=== PATIENT | female | born 1985 | race Caucasian/White ===

== ENCOUNTER → 2017-06-26 | Outpatient (CLI) | payer BC | LOC: SUN.DIA 09:01 | DX: O24.419 Gestational diabetes mellitus in pregnancy, unspecified control (principal); Z3A.00 Weeks of gestation of pregnancy not specified; Z71.3 Dietary counseling and surveillance | CPT/HCPCS: G0108 ==

== ENCOUNTER → 2017-07-09 | Outpatient (CLI) | payer BC | LOC: SUN.DIA 08:53 | DX: O24.419 Gestational diabetes mellitus in pregnancy, unspecified control (principal); Z3A.32 32 weeks gestation of pregnancy; Z71.3 Dietary counseling and surveillance | CPT/HCPCS: G0108 ==

== ENCOUNTER → 2017-07-30 | Outpatient (CLI) | payer BC | LOC: SUN.DIA 08:05 | DX: O24.419 Gestational diabetes mellitus in pregnancy, unspecified control (principal); Z3A.35 35 weeks gestation of pregnancy; Z71.3 Dietary counseling and surveillance | CPT/HCPCS: G0108 ==

== ENCOUNTER → 2017-08-12 | Outpatient (CLI) | payer BC | LOC: SUN.DIA 11:09 | DX: O24.419 Gestational diabetes mellitus in pregnancy, unspecified control (principal); Z3A.37 37 weeks gestation of pregnancy; Z71.3 Dietary counseling and surveillance | CPT/HCPCS: G0108 ==

== ENCOUNTER 2017-09-01 08:10 | Outpatient (CLI) | payer BC ==
[~2017-09-01] VITALS: Ht 154.9 cm; Wt 65.5 kg
[2017-09-01 08:14] VITALS: BP 124/79; PULSE 100; TEMP 98.1
[2017-09-01 08:30] VITALS: BP 124/79; PULSE 100; TEMP 98.1
== END 2017-09-01 09:55 | disposition home or self-care (01) ==
LOC: LDRO 08:10
DX: O46.8X3 Other antepartum hemorrhage, third trimester (principal); Z3A.39 39 weeks gestation of pregnancy

== ENCOUNTER 2017-09-02 23:58 | Inpatient (IN) | payer BC ==
[~2017-09-02] VITALS: Ht 152.4 cm; Wt 65.5 kg
[2017-09-03] VITALS (63 sets, daily range): BP systolic 85–138; BP diastolic 50–83; PULSE 62–117; TEMP 98–99.1
[2017-09-03] MEDS ORDERED: PRENATAL1 TA7 PO (00:28)
[2017-09-03] MEDS ORDERED: CALCIUM CARBON650 M2 PO (00:29)
[2017-09-03] MEDS ORDERED: NATURAL IRON65 MG PO (00:29)
[2017-09-03 01:51] LABS: HEMOGLOBIN 14.5 g/dl (12.5-16.0); MEAN CELL VOLUME 84 fl (80.0-100.0); MEAN CORPUSCULAR HEMOGLOBIN 27 pg (27.0-31.0); MEAN CORPUSCULAR HGB CONC 32 g/dl (33.0-37.0); MEAN PLATELET VOLUME 10.5 fl (7.4-10.4); PLATELET COUNT 198 K/mm3 (130-400); RED BLOOD COUNT 5.39 M/mm3 (4.10-5.30); REDCELL DISTRIBUTION WIDTH-CV 15.1 % (11.5-14.5)
[2017-09-03 02:13] LABS: BAND 3 % (0-10); EOSINOPHIL 1 % (0-4); NEUTROPHILS 63 % (42.0-75.2); ROULEAUX 1+; TOXIC GRANULATION PRESENT
[2017-09-03 02:14] LABS: ANISOCYTOSIS 1+; LYMPHOCYTE 29 % (20.0-51.0); POIKILOCYTOSIS 1+
[2017-09-04 05:30] VITALS: BP 92/54; PULSE 72; TEMP 97.4
[2017-09-04 06:45] VITALS: BP 96/62; PULSE 77; TEMP 98.3
[2017-09-04 07:13] LABS: BASO # 0.1 (0.0-0.2); BASO % 0.5 % (0.0-2.0); EOS # 0.1 (0.0-0.7); EOS % 1.1 % (0-4.0); GRAN # 9.7 (1.4-6.5); GRAN % 73.3 % (42.2-75.2); LYMPH # 2.1 (1.2-3.4); LYMPH % 15.5 % (20.0-51.0); MEAN CELL VOLUME 84 fl (80.0-100.0); MEAN CORPUSCULAR HGB CONC 32 g/dl (33.0-37.0); MEAN PLATELET VOLUME 10.1 fl (7.4-10.4); MONO # 1.1 (0.1-0.6); MONO % 8.4 % (1.7-9.3); PLATELET COUNT 136 K/mm3 (130-400); REDCELL DISTRIBUTION WIDTH-CV 14.9 % (11.5-14.5)
[2017-09-04 07:30] LABS: HEMATOCRIT 29.3 % (37.0-47.0); HEMOGLOBIN 9.3 g/dl (12.5-16.0); MEAN CORPUSCULAR HEMOGLOBIN 27 pg (27.0-31.0)
[2017-09-04 10:30] VITALS: BP 106/58; PULSE 83; TEMP 97.5
[2017-09-04 15:50] VITALS: BP 112/59; PULSE 86; TEMP 98.2
[2017-09-04 20:00] VITALS: BP 120/78; PULSE 100; TEMP 98
[2017-09-05 04:12] VITALS: BP 118/62; PULSE 70; TEMP 98.3
[2017-09-05 06:45] VITALS: BP 100/59; PULSE 90; TEMP 98.4
[2017-09-05] MEDS ORDERED: PERCOCET 325 MG1 TA2 PO (12:01)
[2017-09-05] MEDS ORDERED: IBU600 MG PO (12:01)
[2017-09-05 16:20] VITALS: BP 116/63; PULSE 82; TEMP 97.9
[2017-09-05 21:10] VITALS: BP 128/70; PULSE 81; TEMP 98.2
[2017-09-06 08:33] VITALS: BP 103/61; PULSE 83; TEMP 97.4
== END 2017-09-06 12:49 | disposition home or self-care (01) | DRG 766 ==
LOC: LDRO 23:58 → OB 09-03 00:59 → LDR 09-03 00:59 → OB 09-03 16:00
PROVIDERS: Obstetrics & Gynecology; Student in an Organized Health Care Education/Training Program
PROC: 10D00Z1 Extraction of Products of Conception, Low, Open Approach (ICD-10-PCS; principal; 2017-09-03)
DX: O24.420 Gestational diabetes mellitus in childbirth, diet controlled (principal); O65.3 Obstructed labor due to pelvic outlet and mid-cavity contraction; O99.02 Anemia complicating childbirth; D64.9 Anemia, unspecified; O75.89 Other specified complications of labor and delivery; Z3A.39 39 weeks gestation of pregnancy; Z37.0 Single live birth
CPT/HCPCS: J0690; J1885; J2370; J2400; J2405; J2590; J3010; J7120

== ENCOUNTER → 2017-09-10 | Outpatient (CLI) | payer BC ==
[~2017-09-10] MED LIST: CALCIUM CARBON650 M2 PO; IBU600 MG PO; NATURAL IRON65 MG PO; PERCOCET 325 MG1 TA2 PO; PRENATAL1 TA7 PO
== END ==
LOC: LAC 12:42
DX: Z39.1 Encounter for care and examination of lactating mother (principal); Z71.89 Other specified counseling

== ENCOUNTER → 2017-11-19 | Outpatient (CLI) | payer BC | LOC: MC.RAD 11:00 | DX: N60.11 Diffuse cystic mastopathy of right breast (principal) ==